=== PATIENT | female | born 1970 | race Caucasian/White ===

== ENCOUNTER 2017-12-25 04:54 | Inpatient (IN) | payer MEDICAID ==
[~2017-12-25] VITALS: Ht 165.1 cm; Wt 126.2 kg
[2017-12-25 05:05] VITALS: Ht 165.1 cm; Wt 126.2 kg
[2017-12-25 05:50] LABS: BASOPHIL % 0.4 % (0-2); PLATELET COUNT 375 x10^3mcL (130-400)
[2017-12-25 05:52] LABS: RED CELL DISTRIBUTION WIDTH 16.4 % (11.5-14.5)
[2017-12-25] MEDS ORDERED: HYDROCHLOROTHIA25 MG (05:55)
[2017-12-25] MEDS ORDERED: COUMADIN6 MG (05:55)
[2017-12-25 06:05] LABS: CALCIUM 8.4 mg/dL (8.5-10.1); CARBON DIOXIDE 27.3 mmol/L (21-32); CHLORIDE SERUM 104 mmol/L (98-107); CREATININE SERUM 0.8 mg/dL (0.6-1.0); GFR1 > 60 mL/min; GLUCOSE SERUM 111 mg/dL (74-106); POTASSIUM SERUM 3.7 mmol/L (3.5-5.1); SODIUM SERUM 139 mmol/L (136-145)
[2017-12-25 06:10] LABS: ALKALINE PHOSPHATASE 89 U/L (46-116); ALT/SGPT 21 U/L (14-59); AST/SGOT 17 U/L (15-37); BILIRUBIN TOTAL 0.17 mg/dL (0.20-1.00); TOTAL PROTEIN, SERUM 7.7 g/dL (6.4-8.2)
[2017-12-25 06:12] LABS: ALBUMIN 2.9 g/dL (3.4-5.0)
[2017-12-25 08:46] LABS: TOTAL IRON BINDING CAPACITY 304 ug/dL (250-450)
[2017-12-25 08:47] LABS: PHOSPHOROUS 3.7 mg/dL (2.5-4.9)
[2017-12-25 08:49] LABS: CHOLESTEROL/HDL RATIO 3.5; IRON 23 ug/dL (50-170)
[2017-12-25 08:56] LABS: T3 TOTAL 1.5 ng/mL
[2017-12-25 09:08] LABS: FREE T4 1.07 ng/dL (0.76-1.46); FREE THYROXINE INDEX 2.7 ug/dL (1.4-4.5); T4(THYROXINE) 8.3 ug/dL (4.7-13.3)
[2017-12-25 09:17] LABS: RED BLOOD CELLS 4.4 M/mm3 (4.10-5.10)
[2017-12-25 10:49] VITALS: BP 173/99
[2017-12-25 13:25] VITALS: BP 156/92
[2017-12-25 17:40] VITALS: BP 155/95
[2017-12-25 17:42] LABS: UA SPECIFIC GRAVITY >=1.030 (1.005-1.035); microscopic required? YES; urine erythrocyte 3+ (NEGATIVE)
[2017-12-25 17:55] LABS: AMPHETAMINE QUAL UR POSITIVE (NEG <=1000)
[2017-12-25 21:22] VITALS: BP 149/89
[2017-12-26 05:06] VITALS: BP 149/95
[2017-12-26 06:41] LABS: BASOPHIL % 0.3 % (0-2); PLATELET COUNT 347 x10^3mcL (130-400)
[2017-12-26 06:45] LABS: CALCIUM 8.3 mg/dL (8.5-10.1); CARBON DIOXIDE 25.6 mmol/L (21-32); CHLORIDE SERUM 102 mmol/L (98-107); CREATININE SERUM 0.9 mg/dL (0.6-1.0); GFR1 > 60 mL/min; GLUCOSE SERUM 98 mg/dL (74-106); MAGNESIUM 1.9 mg/dL (1.8-2.4); PHOSPHOROUS 4.1 mg/dL (2.5-4.9); POTASSIUM SERUM 3.9 mmol/L (3.5-5.1); SODIUM SERUM 137 mmol/L (136-145)
[2017-12-26 07:24] LABS: RED CELL DISTRIBUTION WIDTH 17.2 % (11.5-14.5)
[2017-12-26 08:41] VITALS: BP 158/78
[2017-12-26 13:25] VITALS: BP 163/101
[2017-12-26 16:21] VITALS: BP 156/99
[2017-12-26] MEDS ORDERED: NIC14 TD (16:21)
[2017-12-26] MEDS ORDERED: FER300 PO (16:21)
[2017-12-26] MEDS ORDERED: COU10 PO (16:21)
[2017-12-26] MEDS ORDERED: APAP/HYDROCODON1 T13 PO (16:23)
[2017-12-26] MEDS ORDERED: TYL325 PO (16:51)
[2017-12-26] MEDS ORDERED: HYD25 PO (16:52)
[2017-12-26] MEDS ORDERED: ZOFI IV (16:53)
[2017-12-26] MEDS ORDERED: LAC PO (16:53)
[2017-12-26] MEDS ORDERED: COL100 PO (16:53)
[2017-12-26] MEDS ORDERED: VITC PO (16:54)
[2017-12-26] MEDS ORDERED: THERAGRAN-M1 TA4 PO (16:55)
[2017-12-26] MEDS ORDERED: ZESTRIL20 MG PO (19:27)
[2017-12-26 20:17] VITALS: BP 156/99
[2017-12-26 20:54] VITALS: BP 166/84
== END 2017-12-26 21:40 | disposition short-term general hospital (02) | DRG 383 ==
LOC: ED 04:54 → DU 05:43
PROVIDERS: Emergency Medicine; Family Medicine Sports Medicine
DX: L03.116 Cellulitis of left lower limb (principal); N17.0 Acute kidney failure with tubular necrosis; E44.0 Moderate protein-calorie malnutrition; I10 Essential (primary) hypertension; D50.9 Iron deficiency anemia, unspecified; F10.129 Alcohol abuse with intoxication, unspecified; E11.65 Type 2 diabetes mellitus with hyperglycemia; L97.929 Non-pressure chronic ulcer of unspecified part of left lower leg with unspecified severity; R31.9 Hematuria, unspecified; Z86.718 Personal history of other venous thrombosis and embolism; Z79.01 Long term (current) use of anticoagulants; Z68.34 Body mass index [BMI] 34.0-34.9, adult; Z91.14 Patient's other noncompliance with medication regimen
CPT/HCPCS: 82962; 83880; 84439; 97110-GP; 97530-GP; 99406; G0480; J0696; J1885; J1956; J2270; J2405; J3490; J7030; J7040; Q0092